=== PATIENT | male | born 1990 | race Caucasian/White ===

== ENCOUNTER 2017-08-14 17:20 | Emergency (ER) | payer MEDICAID, OTHER ==
[2017-08-14 17:37] VITALS: BP 110/70; PULSE 69; RESP 16; TEMP 97.7; O2SAT 95
--- NOTE | 2017-08-14 18:16 | EDPHY ---
H & P Time Seen by Provider: 08/14/17 18:11 HPI/ROS: CHIEF COMPLAINT: Forehead laceration. HISTORY OF PRESENT ILLNESS: The patient is a 26-year-old male presenting with a forehead laceration. The patient was shooting a rifle and got too close to the scope. When he fired the gun, the scope struck his forehead. He has a small laceration above the right eyebrow. No further injuries reported. Past Medical/Surgical History: Denies. Social History: His two daughters are at bedside. Smoking Status: Never smoked Physical Exam: General Appearance: Alert, pleasant Head: 1cm irregular superficial laceration to the right forehead. Eyes: Pupils equal and round, no conjunctival pallor ENT, Mouth: Mucous membranes moist, no facial bony tenderness Neck: Nontender, range of motion without pain Respiratory: Lungs are clear to auscultation Cardiovascular: Regular rate and rhythm Neurological: Alert, oriented x3, cranial nerves II through XII intact, motor 5 /5, sensory intact to light touch, normal gait. Skin: Warm and dry Psychiatric: Mood and affect normal Constitutional: Initial Vital Signs Temperature (C) 36.5 C 08/14/17 17:32 Heart Rate 69 08/14/17 17:32 Respiratory Rate 16 08/14/17 17:32 Blood Pressure 110/70 08/14/17 17:32 O2 Sat (%) 95 08/14/17 17:32 O2 Delivery Mode Room Air Allergies/Adverse Reactions: No Known Allergies Allergy (Unverified 08/14/17 17:37) Home Medications: Medication Instructions Recorded Lantus 100 UNITS/ML (*) 08/14/17 novoLOG 08/14/17 Medical Decision Making ED Course/Re-evaluation: The patient presents with a 1cm irregular superficial laceration to his right forehead. No other injuries reported. The 1cm laceration on the right forehead was anesthetized using lidocaine. The wound was irrigated, draped and explored to its base with a gloved finger. There were no deep structures involved. No foreign body palpable. Dermabond was applied by nursing staff. - Data Points Medications Given: Discontinued Medications Diphtheria/Tetanus/Acell Pertussis (Boostrix) 0.5 ml IM .ONCE ONE Stop: 08/14/17 18:24 Last Admin: 08/14/17 18:51 Dose: Not Given Departure - Departure Disposition: Home, Routine, Self-Care Clinical Impression: Superficial laceration Condition: Good Instructions: Facial Laceration (ED) Additional Instructions: I recommend keeping the laceration out of the sun to prevent scarring. Keep the wound clean and dry. Followup with your primary care physician as needed. Return to the emergency department with signs of infection including fever, increased redness, swelling, or drainage. Referrals: ARECHARLEY,JOHNK [Other] - As per Instructions Report Scribed for: Jeanna Zimmer Report Scribed by: Celine Anglin Date of Report: 08/14/17 Time of Report: 18:14 Physician Review and Approval Statement: 08/14/17 18:14 Portions of this note were transcribed by a medical imaging tech. I personally performed the history, physical exam, and medical decision-making; and confirmed the accuracy of the information in the transcribed note.
[2017-08-14] MEDS ORDERED: TDAP ADULT 0.5 ML INJ (BOOSTRIX) IM ONE (18:23)
[2017-08-14] MEDS ORDERED: SKIN ADHESIVE (DERMABOND) 1 EACH TP ONE (18:26)
== END 2017-08-14 18:30 | disposition home or self-care (01) ==
PROC: 0HQ1XZZ Repair Face Skin, External Approach (ICD-10-PCS; principal; 2017-08-14)
DX: S01.81XA Laceration without foreign body of other part of head, initial encounter (principal); W22.8XXA Striking against or struck by other objects, initial encounter; Y99.8 Other external cause status; Y93.89 Activity, other specified